=== PATIENT | female | born 1960 | race Caucasian/White ===

== ENCOUNTER 2020-06-20 15:19 | Inpatient (IN) | payer OTHER ==
--- OUTSIDE RECORDS SUMMARY | 2020-06-20 15:49 | XMS ---
:1960 Author Organization [facility] Support Name Relationship Address Phone UE Unavailable Unavailable Unavailable CARMEL PERDOMO DAUGHTER [address] [facility] [place] [address] Re-disclosure Warning The records that you are about to access may contain information from federally- assisted alcohol or drug abuse programs. If such information is present, then the following federally mandated warning applies: This information has been disclosed to you from records protected by federal confidentiality rules (42 CFR part 2). The federal rules prohibit you from making any further disclosure of this information unless further disclosure is expressly permitted by the written consent of the person to whom it pertains or as otherwise permitted by 42 CFR part 2. A general authorization for the release of medical or other information is NOT sufficient for this purpose. The Federal rules restrict any use of the information to criminally investigate or prosecute any alcohol or drug abuse patient.The records that you are about to access may contain highly sensitive health information, the redisclosure of which is protected by Article 27-F of the [facility] Public Health law. If you continue you may haveaccess to information: Regarding HIV / AIDS; Provided by facilities licensed or operated by the [facility] Office of Mental Health; or Provided by the [facility] Office for People With Developmental Disabilities. If such information is present, then the following [facility] mandated warning applies: This information has been disclosed to you from confidential records which are protected by state law. State law prohibits you from making any further disclosure of this information without the specific written consent of the person to whom it pertains, or as otherwise permitted by law. Any unauthorized further disclosure in violation of state law may result in a fine or alf sentence or both. A general authorization for the release of medical or other information is NOT sufficient authorization for further disclosure. Insurance Providers Payer name Policy type Policy ID Covered Covered democrat's Policy P nora / Coverage democrat ID relationship to Mims Inf ormation type mims HARMEET [id number] HEALTH NON CAP Results ID Date Data Source [id number] 03/12/2020 01:50:00 PM EDT [facility] Name Value Range Interpretation Code Description Data Kerrie rce(s) Supporting Document(s ) [facility] was ordered by [facility] and reported by [employer]. ID Date Data Source [id number] 11/30/2019 05:36:00 PM EDT [facility] Name Value Range Interpretation Code Description Data Kerrie rce(s) Supporting Document(s ) COV2 [facility] This lab was ordered by [facility]de nd reported by [facility] [place]. Procedure
[2020-06-20] MEDS ORDERED: KETOROLAC TROMETHAMINE 30 MG/1 ML VIAL IVPUSH ONE (16:11)
--- NOTE | 2020-06-20 16:15 | PDOC ---
History of Present Illness - General Chief Complaint: Pain Stated Complaint: LT LEG PAIN (THIGH) Time Seen by Provider: 06/20/20 16:07 History Source: Patient - History of Present Illness Timing/Duration: reports: other Quality: reports: moderate Past History - Medical History Allergies/Adverse Reactions: Allergies Allergy/AdvReac Type Severity Reaction Status Date / Time No Known Allergies Allergy Verified 06/20/20 15:38 - Psycho-Social/Smoking History Smoking History: Never smoked Review of Systems - Review of Systems Constitutional: Yes: Chills, Fever ABD/GI: No: Blood Streaked Bowels, Constipated, Diarrhea, Nausea, Vomiting, Tarry Stools : No: Dysuria, Discharge, Flank Pain, Hematuria *Physical Exam - Vital Signs Last Vital Signs Temp Pulse Resp BP Pulse Ox 97.9 F 94 H 18 109/62 98 06/20/20 15:38 06/20/20 15:38 06/20/20 15:38 06/20/20 15:38 06/20/20 15:38 - Physical Exam General Appearance: Yes: Appropriately Dressed. No: Apparent Distress HEENT: positive: Normal Voice Neck: positive: Supple Respiratory/Chest: negative: Respiratory Distress Gastrointestinal/Abdominal: positive: Normal Bowel Sounds, Tender, Soft. negative: Distended, Guarding, Rebound Musculoskeletal: negative: CVA Tenderness Integumentary: positive: Dry, Warm Neurologic: positive: Fully Oriented, Alert, Normal Mood/Affect ED Treatment Course - LABORATORY CBC & Chemistry Diagram: 06/21/20 07:14 06/21/20 07:14 - RADIOLOGY Radiology Studies Ordered: Category Date Time Status ABDOMEN & PELVIS CT WITH CONTR [CT] Stat CT Scan 06/20/20 16:10 Ordered Medical Decision Making - Medical Decision Making 06/20/20 16:11 60-year-old female, denies any past medical history, here with severe LLQ/pelvic pain with low-grade fever x5 days. Has been taking Motrin for her symptoms. States sxs better today. No dysuria, vaginal discharge, hematuria, nausea, vomiting or change in bowel movements. No history of similar episode. see exam Diverticulitis vs uti/pyelo, unlikely renal colic or appy Stable and in NAD w/ poorly localized ttp to L lower abd -pain control -labs -CT 06/20/20 16:15 06/20/20 19:48 WBC 19 w/ UTI. Repeat temp 102.5. Will get blood culture and lactic acid at this time. Dose of ceftriaxone and Ofirmev in progress. Will arrange admission pending CT read 06/20/20 20:35 Pt signed out to Dr Chiu pending CT read and admission Discharge - Discharge Information Problems reviewed: Yes Clinical Impression/Diagnosis: Pyelonephritis Condition: Fair - Admission Yes - Follow up/Referral - Patient Discharge Instructions - Post Discharge Activity
[2020-06-20] MEDS ORDERED: KETOROLAC TROMETHAMINE 30 MG/1 ML VIAL ONE (16:31)
[2020-06-20 18:16] LABS: BASO % 0.3 % (0-2.0); EOS % 0.4 % (0-4.5); HEMATOCRIT 37.4 % (32.4-45.2); HEMOGLOBIN 12.6 GM/dL (10.7-15.3); LYMPH % 7.3 % (8-40); MCH 32.2 pg (25.7-33.7); MCHC 33.6 g/dl (32.0-36.0); MEAN CELL VOLUME 95.8 fl (80-96); MEAN PLT VOLUME 8.6 fl (7.5-11.1); MONO % 10.1 % (3.8-10.2); NEUT % 81.9 % (42.8-82.8); PLATELET COUNT 263 K/MM3 (134-434); RDW 13.1 % (11.6-15.6); WHITE BLOOD COUNT 19.3 K/mm3 (4.0-10.0)
[2020-06-20 18:28] LABS: EPI CELLS 2 /uL (0-25.1); HYALINE CASTS 7 /uL (0-3.1); PH,URINE 5.5 (5.0-8.0); URINE APPEARANCE CLOUDY; URINE BACTERIA >9,000 /uL (0-1359); URINE BILIRUBIN NEGATIVE (NEGATIVE); URINE COLOR YELLOW; URINE GLUCOSE (UA) NEGATIVE (NEGATIVE); URINE KETONE NEGATIVE (NEGATIVE); URINE LEUK ESTERASE 2+ (NEGATIVE); URINE NITRITE POSITIVE (NEGATIVE); URINE PROTEIN TRACE (NEGATIVE); URINE RBC 13 /uL (0-23.9); URINE WBC 190 /uL (0-25.8)
[2020-06-20 18:29] LABS: HCG,QUALITATIVE URINE Negative
[2020-06-20 18:53] LABS: ALBUMIN 3.5 g/dl (3.4-5.0); BILIRUBIN,TOTAL 0.5 mg/dL (0.2-1); BLOOD UREA NITROGEN 18.6 mg/dL (7-18); CALCIUM 8.9 mg/dL (8.5-10.1); CREATININE 1.1 mg/dL (0.55-1.3); POTASSIUM 3.7 mmol/L (3.5-5.1); TOT PROT 8.1 g/dl (6.4-8.2)
[2020-06-20] MEDS ORDERED: CEFTRIAXONE 1 GM in DEXTROSE 5%-WATER - 100 ML IVPB ONE (19:39)
[2020-06-20] MEDS ORDERED: CEFTRIAXONE 1 GM/50 ML BAG ONE (19:43)
[2020-06-20] MEDS ORDERED: ACETAMINOPHEN 1000 MG/100 ML VIAL (NON FORMULARY) IVPB ONE (19:47)
[2020-06-20] MEDS ORDERED: SODIUM CHLORIDE 1,000 ML IV STA ×2 (19:47→22:46)
[2020-06-20] MEDS ORDERED: ACETAMINOPHEN INJECTION 100 ML IVPB ONE (19:48)
--- NOTE | 2020-06-20 21:06 | PN ---
Teaching Attending Note Name of Resident: Ben Lawrence ATTENDING PHYSICIAN STATEMENT I saw and evaluated the patient. I reviewed the resident's note and discussed the case with the resident. I agree with the resident's findings and plan as documented. SUBJECTIVE: Patient is a 60-year-old woman with a PMH of HTN (on Lisinopril) who presents to the ER with severe LLQ/pelvic pain and low-grade fever for 5 days. Has been taking Motrin for her symptoms and felt better today. Denies dysuria, abnormal vaginal discharge, hematuria, nausea, vomiting or change in bowel movements. No history of similar episode. Patient denies chest pain, shortness of breath, headache, palpitations, dizziness, fever, chills, nausea, vomiting, diarrhea, constipation, frequency, urgency, melena or hematochezia. Denies alcohol, tobacco or illicit drug use. No sick contacts or recent travels. Family history of DM and HTN on both sides of the family. OBJECTIVE: Alert Vital Signs Period Temp Pulse Resp BP Sys/Grant Pulse Ox Last 24 Hr 97.9 F-102.7 F 92-94 18-19 109-115/62-65 98-100 HEENT: No Jaundice, eye redness or discharge, PERRLA, EOMI. Normocephalic, atraumatic. External ears are normal and hearing is grossly intact. No nasal discharge. Neck: Supple, nontender. No palpable adenopathy or thyromegaly. No JVD Chest: Good effort. Clear to auscultation and percussion. Heart: Regular. No S3, rub or murmur Abdomen: Not distended, soft, lower abdominal tenderness and no HSM. No rebound or guarding. Normal bowel sounds. Ext: Peripheral pulses intact. No leg edema. Skin: Warm and dry. No petechiae, rash or ecchymosis. Neuro: Alert. Oriented x3. CN 2-12 grossly intact. Sensation grossly intact in all four extremities and DTR are symmetric. Psych: Appropriate mood and affect. Good insight. Home Medications Medication Instructions Recorded NK [No Known Home Medication] 06/20/20 Abnormal Lab Results 06/20/20 06/20/20 06/20/20 16:40 16:40 16:40 WBC 19.3 H Absolute Neuts (auto) 15.8 H Lymphocytes % 7.3 L Anion Gap 7 L BUN 18.6 H Urine Nitrite Positive H Ur Leukocyte Esterase 2+ H Current Medications Generic Name Dose Route Start Last Admin Trade Name Freq PRN Reason Stop Dose Admin Acetaminophen 650 mg 06/20/20 22:29 Tylenol - PO Q6H PRN Fever Or Pain 1-5 Enoxaparin Sodium 40 mg 06/21/20 10:00 Lovenox - SQ DAILY JENELLE Sodium Chloride 1,000 mls @ 83 mls/hr 06/20/20 22:30 Normal Saline - IV ASDIR JENELLE Ceftriaxone Sodium 1 gm/ 50 mls @ 100 mls/hr 06/21/20 10:00 Dextrose IVPB DAILY PENDING SALE TO [facility] Protocol ASSESSMENT AND PLAN: 1. Pyelonephritis - CT scan of abdomen/pelvis shows left perinephric stranding. Being treated with IV Ceftriaxone and IV NS. EKG is pending. Consult ID. 2. DVT prophylaxis - Lovenox 40 mg SQ q 24 hours. 3. Advance directives - Full code
--- OUTSIDE RECORDS SUMMARY | 2020-06-20 22:17 | XMS ---
:1960 Author Organization [facility] Support Name Relationship Address Phone UE, UNEMPLOYED Unavailable Unavailable Unavailable UE Unavailable Unavailable Unavailable CARMEL PERDOMO DAUGHTER [address] [facility] [place] [id number] Re-disclosure Warning The records that you are [...] is protected by Article 27-F of the [facility] Public Health law. If you continue you may haveaccess to information: Regarding HIV / AIDS; Provided by facilities licensed or operated by the [facility] Office of Mental Health; or Provided by the [facility] Office for People With Developmental Disabilities. If such information is present, then the following [facility] mandated warning applies: This information has been [...] law may result in a fine or shelter sentence or both. A general authorization for the release of medical or other information is NOT sufficient authorization for further disclosure. Insurance Providers Payer name Policy type Policy ID Covered Covered constitution party's Policy P nora / Coverage constitution party ID relationship to Mims Inf ormation type mims HARMEET [id number] 900 HEALTH NON CAP Results ID Date Data Source [id number] 03/12/2020 01:50:00 PM EDT [facility] Name Value Range Interpretation Code Description Data Kerrie rce(s) Supporting Document(s ) SARS[facility]COV-2 [facility] This lab was ordered by [facility] and reported by [id number]. ID Date Data Source [id number] 11/30/2019 05:36:00 PM EDT [facility] Name Value Range Interpretation Code Description Data Kerrie rce(s) Supporting Document(s ) COV2 [facility] This lab was ordered by [facility] hyde nd reported by [facility]. Procedure
--- NOTE | 2020-06-20 22:28 | HP ---
CHIEF COMPLAINT: LLQ pelvic pain, low grade fever PCP: Dr. Crowley HISTORY OF PRESENT ILLNESS: Pt is a 60 yo F with PMHx of HTN presenting to the ED with 5 days of LLQ abdominal/pelvic pain with no radiation, fevers with Tmax of 100.5 at home. Pt states she has been having dysuria, malodorous urine and dark yellow urine during this time as well with on/off fevers that break with Tylenol use. Pt states this has not happened to her before. Pt also had one episode of NBNB vomiting in the ED prior to evaluation. Pt states she has not seen any doctors for this since this has began, and began to improve slightly until her temperatures started spiking earlier today which prompted her to present to the ED. Pt admits to fever, chills, nausea/vomiting, dysuria Pt denies hematuria, diarrhea/constipation, CP, SOB, palpitations, frequency, urgency. ER course was notable for: (1) Ab/pelvis CT showing L perinephric standing (2) Tylenol for fever 102.7 (3) Rocephin x1, NS1L Recent Travel: denies PAST MEDICAL HISTORY: HTN PAST SURGICAL HISTORY: denies Social History: Smoking: denies Alcohol: denies Drugs: denies Allergies No Known Allergies Allergy (Verified 06/20/20 15:38) HOME MEDICATIONS: Home Medications Medication Instructions Recorded NK [No Known Home Medication] 06/20/20 REVIEW OF SYSTEMS CONSTITUTIONAL: Absent: fever, chills, diaphoresis, generalized weakness, malaise, loss of appetite, weight change HEENT: Absent: rhinorrhea, nasal congestion, throat pain, throat swelling, difficulty swallowing, mouth swelling, ear pain, eye pain, visual changes CARDIOVASCULAR: Absent: chest pain, syncope, palpitations, irregular heart rate, lightheadedness, peripheral edema RESPIRATORY: Absent: cough, shortness of breath, dyspnea with exertion, orthopnea, wheezing, stridor, hemoptysis GASTROINTESTINAL: Absent: abdominal pain, abdominal distension, nausea, vomiting, diarrhea, constipation, melena, hematochezia GENITOURINARY: Absent: dysuria, frequency, urgency, hesitancy, hematuria, flank pain, genital pain MUSCULOSKELETAL: Absent: myalgia, arthralgia, joint swelling, back pain, neck pain SKIN: Absent: rash, itching, pallor HEMATOLOGIC/IMMUNOLOGIC: Absent: easy bleeding, easy bruising, lymphadenopathy, frequent infections ENDOCRINE: Absent: unexplained weight gain, unexplained weight loss, heat intolerance, cold intolerance NEUROLOGIC: Absent: headache, focal weakness or paresthesias, dizziness, unsteady gait, seizure, mental status changes, bladder or bowel incontinence PSYCHIATRIC: Absent: anxiety, depression, suicidal or homicidal ideation, hallucinations. PHYSICAL EXAMINATION Vital Signs - 24 hr 06/20/20 06/20/20 15:38 20:14 Temperature 97.9 F 102.7 F H Pulse Rate 94 H Pulse Rate [ 92 H Apical] Respiratory 18 19 Rate Blood Pressure 109/62 Blood Pressure 115/65 [Right Arm] O2 Sat by Pulse 98 100 Oximetry (%) GENERAL: Awake, alert, and fully oriented, in no acute distress. HEAD: Normal with no signs of trauma. EYES: Pupils equal, round and reactive to light, extraocular movements intact, sclera anicteric, conjunctiva clear. No lid lag. EARS, NOSE, THROAT: Ears normal, nares patent, oropharynx clear without exudates. Moist mucous membranes. NECK: Normal range of motion, supple without lymphadenopathy, JVD, or masses. LUNGS: Breath sounds equal, clear to auscultation bilaterally. No wheezes, and no crackles. No accessory muscle use. HEART: Regular rate and rhythm, normal S1 and S2 without murmur, rub or gallop. ABDOMEN: Soft, nontender, not distended, normoactive bowel sounds, no guarding, no rebound, no masses. No hepatomegaly or splenomegaly. MUSCULOSKELETAL: Normal range of motion at all joints. No bony deformities or tenderness. No CVA tenderness. UPPER EXTREMITIES: 2+ pulses, warm, well-perfused. No cyanosis. No clubbing. No peripheral edema. LOWER EXTREMITIES: 2+ pulses, warm, well-perfused. No calf tenderness. No peripheral edema. NEUROLOGICAL: Cranial nerves II-XII intact. Normal speech. Normal gait. PSYCHIATRIC: Cooperative. Good eye contact. Appropriate mood and affect. SKIN: Warm, dry, normal turgor, no rashes or lesions noted, normal capillary refill. Laboratory Results - last 24 hr 06/20/20 06/20/20 06/20/20 16:40 16:40 16:40 WBC 19.3 H RBC 3.90 Hgb 12.6 Hct 37.4 MCV 95.8 MCH 32.2 MCHC 33.6 RDW 13.1 Plt Count 263 MPV 8.6 Absolute Neuts (auto) 15.8 H Neutrophils % 81.9 Lymphocytes % 7.3 L Monocytes % 10.1 Eosinophils % 0.4 Basophils % 0.3 Nucleated RBC % 0 Sodium 137 Potassium 3.7 Chloride 100 Carbon Dioxide 30 Anion Gap 7 L BUN 18.6 H Creatinine 1.1 Est GFR (CKD-EPI)AfAm 64.09 Est GFR (CKD-EPI)NonAf 55.30 Random Glucose 92 Lactic Acid Calcium 8.9 Total Bilirubin 0.5 AST 24 ALT 19 Alkaline Phosphatase 95 Total Protein 8.1 Albumin 3.5 Lipase 103 Urine Color Yellow Urine Appearance Cloudy Urine pH 5.5 Ur Specific [place] 1.019 Urine Protein Trace Urine Glucose (UA) Negative Urine Ketones Negative Urine Blood Negative Urine Nitrite Positive H Urine Bilirubin Negative Urine Urobilinogen 1.0 Ur Leukocyte Esterase 2+ H Urine WBC (Auto) 190 Urine RBC (Auto) 13 Urine Casts (Auto) 7 U Epithel Cells (Auto) 2 Urine Bacteria (Auto) >9,000 Urine HCG, Qual Negative 06/20/20 20:40 WBC RBC Hgb Hct MCV MCH MCHC RDW Plt Count MPV Absolute Neuts (auto) Neutrophils % Lymphocytes % Monocytes % Eosinophils % Basophils % Nucleated RBC % Sodium Potassium Chloride Carbon Dioxide Anion Gap BUN Creatinine Est GFR (CKD-EPI)AfAm Est GFR (CKD-EPI)NonAf Random Glucose Lactic Acid 2.2 H* Calcium Total Bilirubin AST ALT Alkaline Phosphatase Total Protein Albumin Lipase Urine Color Urine Appearance Urine pH Ur Specific [place] Urine Protein Urine Glucose (UA) Urine Ketones Urine Blood Urine Nitrite Urine Bilirubin Urine Urobilinogen Ur Leukocyte Esterase Urine WBC (Auto) Urine RBC (Auto) Urine Casts (Auto) U Epithel Cells (Auto) Urine Bacteria (Auto) Urine HCG, Qual ASSESSMENT/PLAN: Pt is a 60 yo F with PMHx of HTN presenting to the ED with 5 days of LLQ pelvic pain and low grade fevers admitted for pyelonephritis. #Pyelonephritis -Rec'd Rocephin and NS 1L bolus in ED x1 -continue IV rocephin 1g daily -abd/pelv CT prelim read showing L perinephric stranding in lower pole -n/v, fever/chills -Tmax in ED of 102.7; tylenol PRN for fevers/pain -NS 83cc/hr #Hx of HTN -states she is on home lisinopril, will need to med rec -hold HTN under BP improves, currently 115/65 -NS 83cc/hr FEN NS 83cc/hr Monitor electrolytes Sodium controlled diet PPx Lovenox 40mg SQ Dispo Admit to med surg. IV rocephin for pyelo. Tylenol PRN. ATTENDING PHYSICIAN STATEMENT I saw and evaluated the patient. I reviewed the resident's note and discussed the case with the resident. I agree with the resident's findings and plan as documented. SUBJECTIVE: OBJECTIVE: ASSESSMENT AND PLAN:
[2020-06-20] MEDS ORDERED: SODIUM CHLORIDE 1,000 ML IV SCH (22:30)
[2020-06-21 00:10] VITALS: BMI 28.5
[2020-06-21] MEDS: ACETAMINOPHEN 325 MG TABLET (FP) PO PRN ×3 (03:46→13:22)
[2020-06-21 08:13] LABS: BASO % 0.1 % (0-2.0); EOS % 0.1 % (0-4.5); HEMATOCRIT 30.4 % (32.4-45.2); HEMOGLOBIN 10.3 GM/dL (10.7-15.3); LYMPH % 4.8 % (8-40); MCH 31.6 pg (25.7-33.7); MCHC 33.7 g/dl (32.0-36.0); MEAN CELL VOLUME 93.7 fl (80-96); MEAN PLT VOLUME 8.3 fl (7.5-11.1); PLATELET COUNT 233 K/MM3 (134-434); RBC 3.25 M/mm3 (3.60-5.2)
[2020-06-21 08:33] LABS: ALBUMIN 2.7 g/dl (3.4-5.0); CALCIUM 8.1 mg/dL (8.5-10.1); CREATININE 0.6 mg/dL (0.55-1.3); MAGNESIUM 2.1 mg/dL (1.8-2.4); POTASSIUM 3.5 mmol/L (3.5-5.1); TOT PROT 6.2 g/dl (6.4-8.2)
[2020-06-21] MEDS ORDERED: CEFTRIAXONE 1 GM in DEXTROSE 5%-WATER - 50 ML IVPB SCH (10:00)
[2020-06-21] MEDS ORDERED: NAPH,MB-DB/K PH,MBDB POWDER PACKET PO ONE (10:00)
[2020-06-21] MEDS ORDERED: cefTRIAXone SODIUM 1 GM VIAL ONE (10:46)
[2020-06-21] MEDS ORDERED: DEXTROSE 5%-WATER - 50 ML IVPB ONE (10:47)
[2020-06-21] MEDS: ENOXAPARIN NA (PORCINE) 40 MG/0.4 ML DISP.SYRIN SQ SCH (10:49)
[2020-06-21] MEDS: SODIUM CHLORIDE 1,000 ML IV SCH (10:50)
[2020-06-21] MEDS ORDERED: CEFTRIAXONE 1 GM in DEXTROSE 5%-WATER - 50 ML IVPB ONE (11:00)
--- NOTE | 2020-06-21 11:21 | PN ---
Physical Exam: SUBJECTIVE: Patient seen and examined. Tmax overnight 102.2 continuing to improve to 99 today. Pt c/o chills but no sign of fever, will switch tylenol to IV and assess improvement. OBJECTIVE: Vital Signs Period Temp Pulse Resp BP Sys/Grant Pulse Ox Last 24 Hr 97.9 F-102.7 F 81-94 18-20 94-135/49-68 94-100 GENERAL: The patient is awake, alert, and fully oriented, in no acute distress. LUNGS: Breath sounds equal, clear to auscultation bilaterally, no wheezes, no crackles, no accessory muscle use. HEART: Regular rate and rhythm, S1, S2 without murmur, rub or gallop. ABDOMEN: Soft, nontender, nondistended, no CVA tenderness or suprapubic tenderness noted EXTREMITIES: 2+ pulses, warm, well-perfused, no edema. NEUROLOGICAL: Cranial nerves II through XII grossly intact. Normal speech, gait not observed. PSYCH: Normal mood, normal affect. SKIN: Warm, dry, normal turgor, no rashes or lesions noted Laboratory Results - last 24 hr 06/20/20 06/20/20 06/20/20 16:40 16:40 16:40 WBC 19.3 H RBC 3.90 Hgb 12.6 Hct 37.4 MCV 95.8 MCH 32.2 MCHC 33.6 RDW 13.1 Plt Count 263 MPV 8.6 Absolute Neuts (auto) 15.8 H Neutrophils % 81.9 Lymphocytes % 7.3 L Monocytes % 10.1 Eosinophils % 0.4 Basophils % 0.3 Nucleated RBC % 0 Sodium 137 Potassium 3.7 Chloride 100 Carbon Dioxide 30 Anion Gap 7 L BUN 18.6 H Creatinine 1.1 Est GFR (CKD-EPI)AfAm 64.09 Est GFR (CKD-EPI)NonAf 55.30 Random Glucose 92 Lactic Acid Calcium 8.9 Phosphorus Magnesium Total Bilirubin 0.5 AST 24 ALT 19 Alkaline Phosphatase 95 Total Protein 8.1 Albumin 3.5 Lipase 103 Urine Color Yellow Urine Appearance Cloudy Urine pH 5.5 Ur Specific [place] 1.019 Urine Protein Trace Urine Glucose (UA) Negative Urine Ketones Negative Urine Blood Negative Urine Nitrite Positive H Urine Bilirubin Negative Urine Urobilinogen 1.0 Ur Leukocyte Esterase 2+ H Urine WBC (Auto) 190 Urine RBC (Auto) 13 Urine Casts (Auto) 7 U Epithel Cells (Auto) 2 Urine Bacteria (Auto) >9,000 Urine HCG, Qual Negative 06/20/20 06/21/20 06/21/20 20:40 07:14 07:14 WBC 19.0 H RBC 3.25 L Hgb 10.3 L Hct 30.4 L D MCV 93.7 MCH 31.6 MCHC 33.7 RDW 13.0 Plt Count 233 MPV 8.3 Absolute Neuts (auto) 15.9 H Neutrophils % 84.0 H Lymphocytes % 4.8 L D Monocytes % 11.0 H Eosinophils % 0.1 Basophils % 0.1 Nucleated RBC % 0 Sodium 138 Potassium 3.5 Chloride 106 Carbon Dioxide 23 Anion Gap 9 BUN 13.0 Creatinine 0.6 Est GFR (CKD-EPI)AfAm 116.45 Est GFR (CKD-EPI)NonAf 100.47 Random Glucose 93 Lactic Acid 2.2 H* Calcium 8.1 L Phosphorus 2.0 L Magnesium 2.1 Total Bilirubin 1.0 AST 16 ALT 15 Alkaline Phosphatase 77 Total Protein 6.2 L Albumin 2.7 L Lipase Urine Color Urine Appearance Urine pH Ur Specific [place] Urine Protein Urine Glucose (UA) Urine Ketones Urine Blood Urine Nitrite Urine Bilirubin Urine Urobilinogen Ur Leukocyte Esterase Urine WBC (Auto) Urine RBC (Auto) Urine Casts (Auto) U Epithel Cells (Auto) Urine Bacteria (Auto) Urine HCG, Qual Active Medications Generic Name Dose Route Start Last Admin Trade Name Freq PRN Reason Stop Dose Admin Acetaminophen 650 mg 06/20/20 22:29 06/21/20 06:43 Tylenol - PO 650 mg Q6H PRN Administration Fever Or Pain 1-5 Enoxaparin Sodium 40 mg 06/21/20 10:00 06/21/20 10:49 Lovenox - SQ 40 mg DAILY JENELLE Administration Ceftriaxone Sodium 1 gm/ 50 mls @ 100 mls/hr 06/21/20 11:00 06/21/20 10:49 Dextrose IVPB 06/21/20 11:29 100 mls/hr ONCE ONE Administration Protocol Ceftriaxone Sodium 2 gm/ 100 mls @ 200 mls/hr 06/22/20 10:00 Dextrose IVPB DAILY JENELLE Protocol Sodium Chloride 1,000 mls @ 150 mls/hr 06/21/20 10:32 06/21/20 10:50 Normal Saline - IV 150 mls/hr ASDIR JENELLE Administration Metronidazole 500 mg in 100 mls @ 100 mls/hr 06/21/20 10:45 06/21/20 10:49 Flagyl 500mg Premixed Ivpb - IVPB 100 mls/hr Q8H-IV JENELLE Administration Influenza Virus Vaccine 60 mcg 06/21/20 06:58 Flulaval Quad [id number] Syr IM 06/21/20 06:59 .ONCE ONE ASSESSMENT/PLAN: Pt is a 60 yo F with PMHx of HTN presenting to the ED with 5 days of LLQ pelvic pain and low grade fevers admitted for pyelonephritis. #Acute complicated cystitis/Pyelonephritis -started on 2g Rocephin and flagyl 500 q8 with IV NS -abd/pelv CT prelim showing L perinephric fat stranding in lower pole -n/v, fever/chills -Tmax in ED of 102.7; tylenol PRN for fevers/pain -NS 150/hr - ID consulted as pt temp dropping but still c/o shivers/?rigors - wbc > 19 continue to trend daily #Hx of HTN -states she is on home lisinopril, will need to med rec -hold HTN under BP improves, currently 115/65 FEN NS 150cc/hr Monitor electrolytes Sodium controlled diet PPx Lovenox 40mg SQ Dispo Admit to med surg. IV rocephin for pyelo. Tylenol PRN. Visit type - Emergency Visit Emergency Visit: Yes ED Registration Date: 06/20/20 Care time: The patient presented to the Emergency Department on the above date and was hospitalized for further evaluation of their emergent condition. - New Patient This patient is new to me today: Yes Date on this admission: 06/28/20 - Critical Care Critical Care patient: No - Discharge Referral Referred to [facility] No ATTENDING PHYSICIAN STATEMENT I saw and evaluated the patient. I reviewed the resident's note and discussed the case with the resident. I agree with the resident's findings and plan as documented. SUBJECTIVE: OBJECTIVE: ASSESSMENT AND PLAN:
--- NOTE | 2020-06-21 13:45 | PN ---
Progress Note (short form) - Note Progress Note: ID CONSULT DICTATED PROBABLE L PYELONEPHRITIS R/O SEPSIS SECONDARY TO SOURCE LACTIC ACIDOSIS AWAIT C/S CONTINUE CEFTRIAXONE
[2020-06-21] MEDS ORDERED: ACETAMINOPHEN 1000 MG/100 ML VIAL (NON FORMULARY) IVPB PRN (13:56)
--- NOTE | 2020-06-21 13:57 | CONS ---
INFECTIOUS DISEASE CONSULTATION DATE OF CONSULTATION: DATE OF DICTATION: 06/21/2020 HISTORY: A 60-year-old previously healthy female evaluated for pyelonephritis. She presented to the hospital on June 20, 2020, with complaints of left-sided abdominal pain radiating to the left thigh. She had complained of left lower quadrant abdominal and pelvic pain. She was noted to have fever. Patient states she had symptoms present for approximately 5 days prior to admission. She denied any dysuria or hematuria. She was seen in evaluation in the emergency room where a CAT scan of the abdomen and pelvis was performed. She was noted to have some stranding around the left kidney. Her course was complicated by nonbilious nonbloody vomiting. She denies any dysuria or hematuria. No complaints of malodorous urine. She denies prior history of urinary tract infection. Her course has been complicated by fever at 102.7 and a white blood cell count of 19,000. PAST MEDICAL HISTORY: Positive for hypertension. ALLERGIES: No known allergies. LABORATORY DATA: White count 19.0, hematocrit 30.4, platelets 233. Creatinine 0.6, lactic acid 2.2. Culture is pending. Urine analysis 190 white cells. PHYSICAL EXAMINATION: General: She is in moderate distress secondary to left-sided abdominal pain. She is noted to have some chills. Vital Signs: Temperature 99.1, blood pressure 96/57, pulse 86 regular, respirations 18 per minute. HEENT: Sclerae are anicteric. Heart: Sounds S1, S2. Lungs: Clear. Abdomen: Soft. There is left-sided flank and lower quadrant tenderness to palpation. Extremities: Negative for edema. IMPRESSION: 1. Probable acute left pyelonephritis. 2. Rule out sepsis secondary to genitourinary source. 3. Fever, leukocytosis. 4. Lactic acidosis. Await cultures. Empiric antibiotic coverage with ceftriaxone. IV fluid hydration. Thank you for the kind referral. MASON GARCIA M.D. JANETH/[id number]
--- NOTE | 2020-06-21 15:13 | PN ---
Teaching Attending Note Name of Resident: Gio Wray ATTENDING PHYSICIAN STATEMENT I saw and evaluated the patient. I reviewed the resident's note and discussed the case with the resident. I agree with the resident's findings and plan as documented. SUBJECTIVE: Patient is having chills , having a generalized weakness. low grade fever. OBJECTIVE: Vital Signs Temperature 99.9 F H 06/21/20 14:00 Pulse Rate 93 H 06/21/20 14:00 Respiratory Rate 18 06/21/20 14:00 Blood Pressure 117/59 L 06/21/20 14:00 O2 Sat by Pulse Oximetry (%) 97 06/21/20 14:00 PE: per resident's note No CVA tenderness CBCD WBC 19.0 K/mm3 (4.0-10.0) H 06/21/20 07:14 RBC 3.25 M/mm3 (3.60-5.2) L 06/21/20 07:14 Hgb 10.3 GM/dL (10.7-15.3) L 06/21/20 07:14 Hct 30.4 % (32.4-45.2) L D 06/21/20 07:14 MCV 93.7 fl (80-96) 06/21/20 07:14 MCHC 33.7 g/dl (32.0-36.0) 06/21/20 07:14 RDW 13.0 % (11.6-15.6) 06/21/20 07:14 Plt Count 233 K/MM3 (134-434) 06/21/20 07:14 MPV 8.3 fl (7.5-11.1) 06/21/20 07:14 CMP Sodium 138 mmol/L (136-145) 06/21/20 07:14 Potassium 3.5 mmol/L (3.5-5.1) 06/21/20 07:14 Chloride 106 mmol/L (98-107) 06/21/20 07:14 Carbon Dioxide 23 mmol/L (21-32) 06/21/20 07:14 Anion Gap 9 MMOL/L (8-16) 06/21/20 07:14 BUN 13.0 mg/dL (7-18) 06/21/20 07:14 Creatinine 0.6 mg/dL (0.55-1.3) 06/21/20 07:14 Random Glucose 93 mg/dL (74-106) 06/21/20 07:14 Calcium 8.1 mg/dL (8.5-10.1) L 06/21/20 07:14 Total Bilirubin 1.0 mg/dL (0.2-1) 06/21/20 07:14 AST 16 U/L (15-37) 06/21/20 07:14 ALT 15 U/L (13-61) 06/21/20 07:14 Alkaline Phosphatase 77 U/L (45-117) 06/21/20 07:14 Total Protein 6.2 g/dl (6.4-8.2) L 06/21/20 07:14 Albumin 2.7 g/dl (3.4-5.0) L 06/21/20 07:14 Current Medications Generic Name Dose Route Start Last Admin Trade Name Freq PRN Reason Stop Dose Admin Acetaminophen 1,000 mg 06/21/20 13:56 Ofirmev Injection - IVPB 06/22/20 13:56 Q8H PRN SHIVERING Enoxaparin Sodium 40 mg 06/21/20 10:00 06/21/20 10:49 Lovenox - SQ 40 mg DAILY JENELLE Administration Ceftriaxone Sodium 2 gm/ 100 mls @ 200 mls/hr 06/22/20 10:00 Dextrose IVPB DAILY JENELLE Protocol Sodium Chloride 1,000 mls @ 150 mls/hr 06/21/20 10:32 06/21/20 10:50 Normal Saline - IV 150 mls/hr ASDIR JENELLE Administration Metronidazole 500 mg in 100 mls @ 100 mls/hr 06/21/20 10:45 06/21/20 10:49 Flagyl 500mg Premixed Ivpb - IVPB 100 mls/hr Q8H-IV JENELLE Administration Influenza Virus Vaccine 60 mcg 06/21/20 06:58 Flulaval Quad [id number] Syr IM 06/21/20 06:59 .ONCE ONE Urine Test Results Urine Color Yellow 06/20/20 16:40 Urine Appearance Cloudy 06/20/20 16:40 Urine pH 5.5 (5.0-8.0) 06/20/20 16:40 Ur Specific [place] 1.019 (1.010-1.035) 06/20/20 16:40 Urine Protein Trace (NEGATIVE) 06/20/20 16:40 Urine Glucose (UA) Negative (NEGATIVE) 06/20/20 16:40 Urine Ketones Negative (NEGATIVE) 06/20/20 16:40 Urine Blood Negative (NEGATIVE) 06/20/20 16:40 Urine Nitrite Positive (NEGATIVE) H 06/20/20 16:40 Urine Bilirubin Negative (NEGATIVE) 06/20/20 16:40 Ur Leukocyte Esterase 2+ (NEGATIVE) H 06/20/20 16:40 abd/pelv CT prelim showing L perinephric fat stranding in lower pole ASSESSMENT AND PLAN: This patient is a 60yof with PMHx of HTN presented to the ED c/o having 5 days of LLQ pelvic pain n and is admitted for acute pyelonephritis. #Acute Pyelonephritis on rocephin 2gm/flagyl iv 500mg q8, Id on the case dr Tinsley, continue daily cbc, ivf continue , ordered US f/u the result. #Sepsis due to pylo r/o infection, will continue to monitor #Hx of HTN : continue home meds DVt px: lovenox sq
--- NOTE | 2020-06-21 21:45 | EKG ---
Test Reason : Blood Pressure : / mmHG Vent. Rate : 082 BPM Atrial Rate : 082 BPM P-R Int : 178 ms QRS Dur : 090 ms QT Int : 342 ms P-R-T Axes : 061 029 009 degrees QTc Int : 399 ms NORMAL SINUS RHYTHM POSSIBLE LEFT ATRIAL ENLARGEMENT NONSPECIFIC T WAVE ABNORMALITY ABNORMAL ECG NO PREVIOUS ECGS AVAILABLE Confirmed by Eleonora Arora ([id number]) on 06/21/2020 9:45:30 PM Referred By: Confirmed By:Eleonora Arora
[2020-06-21] MEDS ORDERED: INSULIN (NOVOLOG) ASPART 100 UNITS/ML 10ML VIAL ONE (22:00)
[2020-06-22 06:22] LABS: BASO % 0.2 % (0-2.0); EOS % 0.2 % (0-4.5); HEMATOCRIT 28.3 % (32.4-45.2); HEMOGLOBIN 9.6 GM/dL (10.7-15.3); LYMPH % 10.9 % (8-40); MCH 31.8 pg (25.7-33.7); MCHC 33.9 g/dl (32.0-36.0); MEAN CELL VOLUME 93.8 fl (80-96); MEAN PLT VOLUME 8.1 fl (7.5-11.1); NEUT % 77.7 % (42.8-82.8); PLATELET COUNT 207 K/MM3 (134-434); RBC 3.02 M/mm3 (3.60-5.2); RDW 13.1 % (11.6-15.6); WHITE BLOOD COUNT 14.8 K/mm3 (4.0-10.0)
[2020-06-22 06:56] LABS: ALBUMIN 2.3 g/dl (3.4-5.0); BILIRUBIN,TOTAL 0.2 mg/dL (0.2-1); BLOOD UREA NITROGEN 11.6 mg/dL (7-18); CALCIUM 7.7 mg/dL (8.5-10.1); CREATININE 0.5 mg/dL (0.55-1.3); POTASSIUM 3.4 mmol/L (3.5-5.1); TOT PROT 5.6 g/dl (6.4-8.2)
--- NOTE | 2020-06-22 09:40 | PN ---
Teaching Attending Note Name of Resident: Lolis Argueta ATTENDING PHYSICIAN STATEMENT I saw and evaluated the patient. I reviewed the resident's note and discussed the case with the resident. I agree with the resident's findings and plan as documented. SUBJECTIVE: Patient is feeling better in terms of back pain, no fever or shortness of breath OBJECTIVE: Vital Signs Temperature 98.8 F 06/22/20 06:00 Pulse Rate 68 06/22/20 06:00 Respiratory Rate 20 06/22/20 06:00 Blood Pressure 119/65 06/22/20 06:00 O2 Sat by Pulse Oximetry (%) 98 06/22/20 06:00 PE: per resident's note left CVA tenderness CBCD WBC 14.8 K/mm3 (4.0-10.0) H 06/22/20 06:00 RBC 3.02 M/mm3 (3.60-5.2) L 06/22/20 06:00 Hgb 9.6 GM/dL (10.7-15.3) L 06/22/20 06:00 Hct 28.3 % (32.4-45.2) L 06/22/20 06:00 MCV 93.8 fl (80-96) 06/22/20 06:00 MCHC 33.9 g/dl (32.0-36.0) 06/22/20 06:00 RDW 13.1 % (11.6-15.6) 06/22/20 06:00 Plt Count 207 K/MM3 (134-434) 06/22/20 06:00 MPV 8.1 fl (7.5-11.1) 06/22/20 06:00 CMP Sodium 142 mmol/L (136-145) 06/22/20 06:00 Potassium 3.4 mmol/L (3.5-5.1) L 06/22/20 06:00 Chloride 113 mmol/L (98-107) H 06/22/20 06:00 Carbon Dioxide 23 mmol/L (21-32) 06/22/20 06:00 Anion Gap 6 MMOL/L (8-16) L 06/22/20 06:00 BUN 11.6 mg/dL (7-18) 06/22/20 06:00 Creatinine 0.5 mg/dL (0.55-1.3) L 10/12/20 06:00 Random Glucose 96 mg/dL (74-106) 06/22/20 06:00 Calcium 7.7 mg/dL (8.5-10.1) L 06/22/20 06:00 Total Bilirubin 0.2 mg/dL (0.2-1) 06/22/20 06:00 AST 15 U/L (15-37) 06/22/20 06:00 ALT 13 U/L (13-61) 06/22/20 06:00 Alkaline Phosphatase 69 U/L (45-117) 06/22/20 06:00 Total Protein 5.6 g/dl (6.4-8.2) L 06/22/20 06:00 Albumin 2.3 g/dl (3.4-5.0) L 06/22/20 06:00 Current Medications Generic Name Dose Route Start Last Admin Trade Name Freq PRN Reason Stop Dose Admin Acetaminophen 1,000 mg 06/21/20 13:56 06/22/20 01:23 Ofirmev Injection - IVPB 06/22/20 13:56 1,000 mg Q8H PRN Administration SHIVERING Enoxaparin Sodium 40 mg 06/21/20 10:00 06/21/20 10:49 Lovenox - SQ 40 mg DAILY JENELLE Administration Ceftriaxone Sodium 2 gm/ 100 mls @ 200 mls/hr 06/22/20 10:00 Dextrose IVPB DAILY JENELLE Protocol Sodium Chloride 1,000 mls @ 150 mls/hr 06/21/20 10:32 06/21/20 10:50 Normal Saline - IV 150 mls/hr ASDIR JENELLE Administration Metronidazole 500 mg in 100 mls @ 100 mls/hr 06/21/20 10:45 06/22/20 01:22 Flagyl 500mg Premixed Ivpb - IVPB 100 mls/hr Q8H-IV JENELLE Administration Influenza Virus Vaccine 60 mcg 06/22/20 10:00 Flulaval Quad [id number] Syr IM 06/22/20 10:01 .ONCE ONE Home Medications Medication Instructions Recorded Lisinopril/Hydrochlorothiazide 1 each PO DAILY 06/21/20 [Lisinopril-Hctz 20-12.5 mg Tab] abd/pelv CT prelim showing L perinephric fat stranding in lower pole ASSESSMENT AND PLAN: This patient is a 60yof with PMHx of HTN presented to the ED c/o having 5 days of LLQ pelvic pain n and is admitted for acute pyelonephritis. #Acute Pyelonephritis on rocephin 2gm/flagyl iv 500mg q8, Id on the case dr Tinsley, continue daily cbc, ivf continue , ordered US f/u the result. continue to monitor , id on the case #Sepsis due to pylo r/o infection, will continue to monitor #Hx of HTN : continue home meds DVt px: lovenox sq
[2020-06-22 09:45] LABS: ERYTHROCYTE SEDIMENTATION RATE 76 mm/hr (0-30)
[2020-06-22] MEDS ORDERED: FLU VACCINE (FLULAVAL) PF 60 MCG/0.5 ML SYRINGE 2020-2021 IM ONE (10:00)
[2020-06-22] MEDS ORDERED: DEXTROSE 5%-WATER 100 ML IVPB ONE (11:22)
[2020-06-22] MEDS: CEFTRIAXONE 2 GM in DEXTROSE 5%-WATER 100 ML IVPB SCH (11:24)
[2020-06-22] MEDS: ENOXAPARIN NA (PORCINE) 40 MG/0.4 ML DISP.SYRIN SQ SCH (11:25)
--- NOTE | 2020-06-22 13:32 | PN ---
Physical Exam: SUBJECTIVE: Patient seen and examined. Pt was febrile overnight, Tmax 102.6. Pt stated she felt slightly better. Denied increased urinary frequency, urgency, pain on urination. OBJECTIVE: Vital Signs Period Temp Pulse Resp BP Sys/Grant Pulse Ox Last 24 Hr 98.8 F-102.6 F 68-93 18-20 97-119/54-65 97-98 GENERAL: Awake, alert. In mild distress. Tearful. HEENT: NCAT, EOMI. Moist mucus membranes. LUNGS: CTA b/l. No wheezes or accessory muscle use. HEART: Regular rate and rhythm, S1, S2 without murmur. ABDOMEN: Soft, nontender, nondistended, normoactive bowel sounds. No suprapubic tenderness. MSK: No CVAT. Left groin tender to palpation. EXTREMITIES:warm, well-perfused. No edema SKIN: Warm, dry Laboratory Last Values WBC 14.8 K/mm3 (4.0-10.0) H 06/22/20 06:00 RBC 3.02 M/mm3 (3.60-5.2) L 06/22/20 06:00 Hgb 9.6 GM/dL (10.7-15.3) L 06/22/20 06:00 Hct 28.3 % (32.4-45.2) L 06/22/20 06:00 MCV 93.8 fl (80-96) 06/22/20 06:00 MCH 31.8 pg (25.7-33.7) 06/22/20 06:00 MCHC 33.9 g/dl (32.0-36.0) 06/22/20 06:00 RDW 13.1 % (11.6-15.6) 06/22/20 06:00 Plt Count 207 K/MM3 (134-434) 06/22/20 06:00 MPV 8.1 fl (7.5-11.1) 06/22/20 06:00 Absolute Neuts (auto) 11.5 K/mm3 (1.5-8.0) H 06/22/20 06:00 Neutrophils % 77.7 % (42.8-82.8) 06/22/20 06:00 Lymphocytes % 10.9 % (8-40) D 06/22/20 06:00 Monocytes % 11.0 % (3.8-10.2) H 06/22/20 06:00 Eosinophils % 0.2 % (0-4.5) D 06/22/20 06:00 Basophils % 0.2 % (0-2.0) 06/22/20 06:00 Nucleated RBC % 0 % (0-0) 06/22/20 06:00 ESR 76 mm/hr (0-30) H 06/22/20 06:00 Sodium 142 mmol/L (136-145) 06/22/20 06:00 Potassium 3.4 mmol/L (3.5-5.1) L 06/22/20 06:00 Chloride 113 mmol/L (98-107) H 06/22/20 06:00 Carbon Dioxide 23 mmol/L (21-32) 06/22/20 06:00 Anion Gap 6 MMOL/L (8-16) L 06/22/20 06:00 BUN 11.6 mg/dL (7-18) 06/22/20 06:00 Creatinine 0.5 mg/dL (0.55-1.3) L 06/22/20 06:00 Est GFR (CKD-EPI)AfAm 123.65 06/22/20 06:00 Est GFR (CKD-EPI)NonAf 106.68 06/22/20 06:00 Random Glucose 96 mg/dL (74-106) 06/22/20 06:00 Lactic Acid 0.6 mmol/L (0.4-2.0) 06/22/20 06:00 Calcium 7.7 mg/dL (8.5-10.1) L 06/22/20 06:00 Phosphorus 2.0 mg/dL (2.5-4.9) L 06/21/20 07:14 Magnesium 2.1 mg/dL (1.8-2.4) 06/21/20 07:14 Ferritin 80.0 ng/ml (8-388) 06/22/20 06:00 Total Bilirubin 0.2 mg/dL (0.2-1) 06/22/20 06:00 AST 15 U/L (15-37) 06/22/20 06:00 ALT 13 U/L (13-61) 06/22/20 06:00 Alkaline Phosphatase 69 U/L (45-117) 06/22/20 06:00 LD Total 132 U/L (84-246) 06/22/20 06:00 C-Reactive Protein 15.3 MG/DL (0.00-0.3) H 06/22/20 06:00 Total Protein 5.6 g/dl (6.4-8.2) L 06/22/20 06:00 Albumin 2.3 g/dl (3.4-5.0) L 06/22/20 06:00 Lipase 103 U/L (73-393) 06/20/20 16:40 Urine Color Yellow 06/20/20 16:40 Urine Appearance Cloudy 06/20/20 16:40 Urine pH 5.5 (5.0-8.0) 06/20/20 16:40 Ur Specific [place] 1.019 (1.010-1.035) 06/20/20 16:40 Urine Protein Trace (NEGATIVE) 06/20/20 16:40 Urine Glucose (UA) Negative (NEGATIVE) 06/20/20 16:40 Urine Ketones Negative (NEGATIVE) 06/20/20 16:40 Urine Blood Negative (NEGATIVE) 06/20/20 16:40 Urine Nitrite Positive (NEGATIVE) H 06/20/20 16:40 Urine Bilirubin Negative (NEGATIVE) 06/20/20 16:40 Urine Urobilinogen 1.0 mg/dL (0.2-1.0) 06/20/20 16:40 Ur Leukocyte Esterase 2+ (NEGATIVE) H 06/20/20 16:40 Urine WBC (Auto) 190 /uL (0-25.8) 06/20/20 16:40 Urine RBC (Auto) 13 /uL (0-23.9) 06/20/20 16:40 Urine Casts (Auto) 7 /uL (0-3.1) 06/20/20 16:40 U Epithel Cells (Auto) 2 /uL (0-25.1) 06/20/20 16:40 Urine Bacteria (Auto) >9,000 /uL (0-1359) 06/20/20 16:40 Urine HCG, Qual Negative 06/20/20 16:40 COVID-19 (LIZETT) Not detected (Not Detected) 06/20/20 20:40 Active Medications Enoxaparin Sodium (Lovenox -) 40 mg SQ DAILY JENELLE Last Admin: 06/22/20 11:25 Dose: 40 mg Documented by: Ceftriaxone Sodium 2 gm/ (Dextrose) 100 mls @ 200 mls/hr IVPB DAILY JENELLE; Protocol Last Admin: 06/22/20 11:24 Dose: 200 mls/hr Documented by: Sodium Chloride (Normal Saline -) 1,000 mls @ 150 mls/hr IV ASDIR JENELLE Last Admin: 06/21/20 10:50 Dose: 150 mls/hr Documented by: Metronidazole (Flagyl 500mg Premixed Ivpb -) 500 mg in 100 mls @ 100 mls/hr IVPB Q8H-IV JENELLE Last Admin: 06/22/20 11:24 Dose: 100 mls/hr Documented by: CT A/P 06/20 No hydronephrosis is seen. Left perirenal and periureteral soft tissue stranding consistent with edema is noted suggestive of inflammation/infection such as acute pyelonephritis or pyelitis/ureteritis versus representing parenchymal changes due to a recently passed calculus. There is no definite CT evidence of current urolithiasis. A 2.4 x 2 cm nonspecific hypodense focus is noted within the inferomedial left renal cortex which could represent a nonspecific complex cyst, abscess and less likely a solid neoplastic lesion. Close imaging follow-up is suggested. Status post gastric surgery. Small to moderate hiatal hernia. Renal US 06/21 There is no evidence of hydronephrosis. A nonspecific 2.4 x 2 cm low-attenuation focus identified within the lower pole cortex of the left kidney medially on CT performed 06/20/2020 cannot be appreciated on sonography. Please refer to the CT report in this regard. In addition left perirenal soft tissue stranding identified on CT also cannot be appreciated on sonography. ASSESSMENT/PLAN: Pt is a 60 yo F with PMH of HTN who presented to the ED with 5 days of LLQ and pelvic pain with low grade fevers. Pt is admitted for pyelonephritis. Sepsis likely secondary to acute pyelonephritis -CT A/P as above. -Leukocytosis improving -Bcx negative thus far. Ucx growing lactose fermenting GNB -c/w ceftriaxone (started 06/20, skipped 06/21) day 2. Metronidazole 500,g q8H (started 06/21) day 2. -Pt febrile in last 24 hours, Tmax 102.6 -c/w IVF -c/w acetaminophen 650mg q6H PRN for fever -Renal US as above. -ID consulted. HTN, chronic -Currently normotensive -c/w home lisinopril/HCTZ 20-12.5mg qD FEN -NS 150cc/hr -Monitor electrolytes and replete as needed -Sodium controlled diet PPx DVT: Lovenox Dispo continue to monitor in med/surg Visit type - Emergency Visit Emergency Visit: Yes ED Registration Date: 06/20/20 Care time: The patient presented to the Emergency Department on the above date and was hospitalized for further evaluation of their emergent condition. - New Patient This patient is new to me today: No - Critical Care Critical Care patient: No ATTENDING PHYSICIAN STATEMENT I saw and evaluated the patient. I reviewed the resident's note and discussed the case with the resident. I agree with the resident's findings and plan as documented. SUBJECTIVE: OBJECTIVE: ASSESSMENT AND PLAN:
[2020-06-22] MEDS: SODIUM CHLORIDE 1,000 ML IV SCH (15:00)
[2020-06-22] MEDS ORDERED: ACETAMINOPHEN 325 MG TABLET (FP) PO PRN (15:58)
--- NOTE | 2020-06-22 22:25 | PN ---
Progress Note, Physician Chief Complaint: C/O L FLANK, LLQ PAIN NO DYSURIA NO FEVER/ CHILLS REMAINS FEBRILE WBC IMPROVED BC (-) URINE C/S GNR - Current Medication List Current Medications: Active Medications Acetaminophen (Tylenol -) 650 mg PO Q6H PRN PRN Reason: FEVER Last Admin: 06/22/20 17:46 Dose: 650 mg Documented by: Enoxaparin Sodium (Lovenox -) 40 mg SQ DAILY JENELLE Last Admin: 06/22/20 11:25 Dose: 40 mg Documented by: Ceftriaxone Sodium 2 gm/ (Dextrose) 100 mls @ 200 mls/hr IVPB DAILY JENELLE; Protocol Last Admin: 06/22/20 11:24 Dose: 200 mls/hr Documented by: Sodium Chloride (Normal Saline -) 1,000 mls @ 150 mls/hr IV ASDIR JENELLE Last Admin: 06/22/20 15:00 Dose: 150 mls/hr Documented by: Metronidazole (Flagyl 500mg Premixed Ivpb -) 500 mg in 100 mls @ 100 mls/hr IVPB Q8H-IV JENELLE Last Admin: 06/22/20 17:48 Dose: 100 mls/hr Documented by: - Objective Vital Signs: Vital Signs Temperature 99.3 F 06/22/20 18:00 Pulse Rate 78 06/22/20 18:00 Respiratory Rate 18 06/22/20 18:00 Blood Pressure 140/81 06/22/20 18:00 O2 Sat by Pulse Oximetry (%) 97 06/22/20 18:00 Constitutional: Yes: No Distress Eyes: Yes: Conjunctiva Clear Cardiovascular: Yes: Regular Rate and Rhythm, S1, S2 Respiratory: Yes: CTA Bilaterally Gastrointestinal: Yes: Normal Bowel Sounds, Other (LLQ, L FLANK TENDERNESS) Labs: CBC, BMP 06/22/20 06:00 06/22/20 06:00 Assessment/Plan UTI L PYELONEPHRITIS AWAIT C/S CONTINUE CEFTRIAXONE
[2020-06-23] MEDS ORDERED: MELATONIN 5 MG TABLETS PO ONE (01:57)
[2020-06-23] MEDS: SODIUM CHLORIDE 1,000 ML IV SCH ×2 (07:44→10:36)
[2020-06-23 08:55] LABS: BASO % 0.2 % (0-2.0); EOS % 1.4 % (0-4.5); HEMATOCRIT 28.4 % (32.4-45.2); HEMOGLOBIN 9.9 GM/dL (10.7-15.3); LYMPH % 12.1 % (8-40); MCH 32.6 pg (25.7-33.7); MCHC 34.7 g/dl (32.0-36.0); MEAN CELL VOLUME 93.9 fl (80-96); MEAN PLT VOLUME 8.3 fl (7.5-11.1); MONO % 9.9 % (3.8-10.2); NEUT % 76.4 % (42.8-82.8); PLATELET COUNT 233 K/MM3 (134-434); RBC 3.02 M/mm3 (3.60-5.2); RDW 12.8 % (11.6-15.6); WHITE BLOOD COUNT 10.7 K/mm3 (4.0-10.0)
[2020-06-23 09:17] LABS: BLOOD UREA NITROGEN 6.8 mg/dL (7-18); CREATININE 0.4 mg/dL (0.55-1.3); POTASSIUM 3.4 mmol/L (3.5-5.1)
[2020-06-23] MEDS ORDERED: PT OWN MED DRAWER 7, Y5N ONE (09:31)
[2020-06-23] MEDS ORDERED: DEXTROSE 5%-WATER 100 ML IVPB ONE (09:32)
[2020-06-23] MEDS: ENOXAPARIN NA (PORCINE) 40 MG/0.4 ML DISP.SYRIN SQ SCH (09:36)
[2020-06-23] MEDS ORDERED: LISINOPRIL 20 MG TABLET PO SCH (10:00)
[2020-06-23] MEDS ORDERED: HYDROCHLOROTHIAZIDE 12.5 MG CAPSULE (FP) PO SCH (10:00)
[2020-06-23] MEDS: CEFTRIAXONE 2 GM in DEXTROSE 5%-WATER 100 ML IVPB SCH (10:36)
--- NOTE | 2020-06-23 15:06 | PN ---
Teaching Attending Note Name of Resident: Lolis Argueta ATTENDING PHYSICIAN STATEMENT I saw and evaluated the patient. I reviewed the resident's note and discussed the case with the resident. I agree with the resident's findings and plan as documented. SUBJECTIVE: Patient no longer with pain states she has not slept well while in the hospital OBJECTIVE: Vital Signs Period Temp Pulse Resp BP Sys/Grant Pulse Ox Last 24 Hr 99.3 F-99.6 F 59-78 18-20 132-141/69-81 94-97 GENERAL: Awake, alert, in no acute distress. HEAD: Normal with no signs of trauma. EYES: Pupils equal, round and reactive to light, extraocular movements intact, sclera anicteric, conjunctiva clear. EARS, NOSE, THROAT: Ears normal, nares patent, Moist mucous membranes. NECK: Normal range of motion, No JVD, LUNGS: Breath sounds equal, clear to auscultation bilaterally. No wheezes, and no crackles. No accessory muscle use. HEART: Regular rate and rhythm, normal S1 and S2 without murmur, rub or gallop. ABDOMEN: Soft, nontender, not distended, normoactive bowel sounds, no guarding, no rebound, MUSCULOSKELETAL: Normal range of motion at all joints. No bony deformities or tenderness. No CVA tenderness. EXTREMITIES: 2+ pulses, warm, well-perfused. No calf tenderness. No peripheral edema. NEUROLOGICAL: Cranial nerves II-XII intact. Normal speech. PSYCHIATRIC: Cooperative. Good eye contact. Appropriate mood and affect. SKIN: Warm, dry, normal turgor, no rashes or lesions noted. ASSESSMENT AND PLAN: 60 y/o F with Hx of HTN who presents with pelvic pain, found to have pyelonephritis Will transition to PO antibiotics at this time. patient tolerating PO intake Plan to discharge home with outpatient follow up Continue home medication Please see discharge summary for additional information
--- NOTE | 2020-06-23 15:07 | DS ---
Physical Exam: SUBJECTIVE: Patient seen and examined. Pt reported feeling better today and was without pain. OBJECTIVE: Vital Signs Period Temp Pulse Resp BP Sys/Grant Pulse Ox Last 24 Hr 99.3 F-99.6 F 59-78 18-20 132-141/69-81 94-97 PHYSICAL EXAM GENERAL: Somnolent but arousable. Not in acute distress. HEENT: NCAT, EOMI. Moist mucus membranes. LUNGS: CTA b/l. No wheezes or accessory muscle use. HEART: Regular rate and rhythm, S1, S2 without murmur. ABDOMEN: Soft, nontender, nondistended, normoactive bowel sounds. No suprapubic tenderness. EXTREMITIES:warm, well-perfused. No edema SKIN: Warm, dry LABS Laboratory Last Values WBC 10.7 K/mm3 (4.0-10.0) H 06/23/20 08:00 RBC 3.02 M/mm3 (3.60-5.2) L 06/23/20 08:00 Hgb 9.9 GM/dL (10.7-15.3) L 06/23/20 08:00 Hct 28.4 % (32.4-45.2) L 06/23/20 08:00 MCV 93.9 fl (80-96) 06/23/20 08:00 MCH 32.6 pg (25.7-33.7) 06/23/20 08:00 MCHC 34.7 g/dl (32.0-36.0) 06/23/20 08:00 RDW 12.8 % (11.6-15.6) 06/23/20 08:00 Plt Count 233 K/MM3 (134-434) 06/23/20 08:00 MPV 8.3 fl (7.5-11.1) 06/23/20 08:00 Absolute Neuts (auto) 8.2 K/mm3 (1.5-8.0) H 06/23/20 08:00 Neutrophils % 76.4 % (42.8-82.8) 06/23/20 08:00 Lymphocytes % 12.1 % (8-40) 06/23/20 08:00 Monocytes % 9.9 % (3.8-10.2) 06/23/20 08:00 Eosinophils % 1.4 % (0-4.5) D 06/23/20 08:00 Basophils % 0.2 % (0-2.0) 06/23/20 08:00 Nucleated RBC % 0 % (0-0) 06/23/20 08:00 ESR 76 mm/hr (0-30) H 06/22/20 06:00 Sodium 140 mmol/L (136-145) 06/23/20 08:00 Potassium 3.4 mmol/L (3.5-5.1) L 06/23/20 08:00 Chloride 110 mmol/L (98-107) H 06/23/20 08:00 Carbon Dioxide 24 mmol/L (21-32) 06/23/20 08:00 Anion Gap 6 MMOL/L (8-16) L 06/23/20 08:00 BUN 6.8 mg/dL (7-18) L 06/23/20 08:00 Creatinine 0.4 mg/dL (0.55-1.3) L 06/23/20 08:00 Est GFR (CKD-EPI)AfAm 133.07 06/23/20 08:00 Est GFR (CKD-EPI)NonAf 114.81 06/23/20 08:00 Random Glucose 83 mg/dL (74-106) 06/23/20 08:00 Lactic Acid 0.6 mmol/L (0.4-2.0) 06/22/20 06:00 Calcium 8.0 mg/dL (8.5-10.1) L 06/23/20 08:00 Phosphorus 2.0 mg/dL (2.5-4.9) L 06/21/20 07:14 Magnesium 2.1 mg/dL (1.8-2.4) 06/21/20 07:14 Ferritin 80.0 ng/ml (8-388) 06/22/20 06:00 Total Bilirubin 0.2 mg/dL (0.2-1) 06/22/20 06:00 AST 15 U/L (15-37) 06/22/20 06:00 ALT 13 U/L (13-61) 06/22/20 06:00 Alkaline Phosphatase 69 U/L (45-117) 06/22/20 06:00 LD Total 132 U/L (84-246) 06/22/20 06:00 C-Reactive Protein 15.3 MG/DL (0.00-0.3) H 06/22/20 06:00 Total Protein 5.6 g/dl (6.4-8.2) L 06/22/20 06:00 Albumin 2.3 g/dl (3.4-5.0) L 06/22/20 06:00 Lipase 103 U/L (73-393) 06/20/20 16:40 Urine Color Yellow 06/20/20 16:40 Urine Appearance Cloudy 06/20/20 16:40 Urine pH 5.5 (5.0-8.0) 06/20/20 16:40 Ur Specific [place] 1.019 (1.010-1.035) 06/20/20 16:40 Urine Protein Trace (NEGATIVE) 06/20/20 16:40 Urine Glucose (UA) Negative (NEGATIVE) 06/20/20 16:40 Urine Ketones Negative (NEGATIVE) 06/20/20 16:40 Urine Blood Negative (NEGATIVE) 06/20/20 16:40 Urine Nitrite Positive (NEGATIVE) H 06/20/20 16:40 Urine Bilirubin Negative (NEGATIVE) 06/20/20 16:40 Urine Urobilinogen 1.0 mg/dL (0.2-1.0) 06/20/20 16:40 Ur Leukocyte Esterase 2+ (NEGATIVE) H 06/20/20 16:40 Urine WBC (Auto) 190 /uL (0-25.8) 06/20/20 16:40 Urine RBC (Auto) 13 /uL (0-23.9) 06/20/20 16:40 Urine Casts (Auto) 7 /uL (0-3.1) 06/20/20 16:40 U Epithel Cells (Auto) 2 /uL (0-25.1) 06/20/20 16:40 Urine Bacteria (Auto) >9,000 /uL (0-1359) 06/20/20 16:40 Urine HCG, Qual Negative 06/20/20 16:40 COVID-19 (LIZETT) Not detected (Not Detected) 06/20/20 20:40 HOSPITAL COURSE: Pt is a 60 yo F with PMH of HTN who presented to the ED with 5 days of LLQ and pelvic pain with low grade fevers. CT A/P showed evidence of inflammatory/infectious process of the L kidney. Pt is admitted for sepsis likely secondary to acute pyelonephritis. Pt was treated with ceftriaxone and metronidazole. Leukocytosis improved. Repeat renal US did not show hydrone phrosis. Pt was afebrile for >24hours. Decision made to transition to PO antibiotics. Pt is hemodynamically stable and medically optimized for discharge home. Date of Admission:06/20/20 Date of Discharge: 06/23/20 Minutes to complete discharge: 36 Discharge Summary Problems reviewed: Yes Reason For Visit: LT LEG PAIN (THIGH) Current Active Problems Hypertension (Chronic) Condition: Improved - Instructions Diet, Activity, Other Instructions: Your visit: You were admitted to the hospital for pelvic pain and fevers. You had imaging of your abdomen and pelvis. You were found to have inflammation and infection of your kidney. There was no evidence of a stone. You were treated with IV antibiotics with improvement of your symptoms. You are now stable and may return home. Additional Image findings: During imaging of your abdomen and pelvis, you were found to have some incidental findings. You have a 2.4 x 2cm complex cyst located on your left kidney and a hiatal hernia. You will have to follow up with your primary care physician to monitor these findings. Medications changes: You have a NEW medication -Please continue to take Cephalexin 500mg by mouth every 12 hours for 4 days. Your next dose is tomorrow. -Continue to take all other home medications as prescribed: -Lisinopril/hydrochlorothiazide 20-12.5mg, 1 pill by mouth daily for your blood pressure. -Diclofenac gel 1% apply to affected area daily as needed. -Cyclobenzaprine 10mg by mouth every night for muscle spasms. Follow up: - Visit with your Primary Care Provider, Dr. Crowley, in 2 weeks. You may discuss your hospitalization during this visit. You will also have to do follow-up imaging of the cyst found in your kidney. If you do not have a primary care provider you may make an appointment with Dr. Lolis Argueta at the [facility] clinic located at [facility] ([phone]). Additional Instructions: -You are being discharged to your home. -Please return to the Emergency Department if you experience worsening pain, fevers, chills, shortness of breath, or chest pain, or if you experience any worsening, new or concerning symptoms. Referrals: ON STAFF,NOT [Non Staff, Medical] - 2 Weeks (Follow up with Dr. Crowley, your primary care doctor) Disposition: HOME - Home Medications Comprehensive Discharge Medication List: Ambulatory Orders Lisinopril/Hydrochlorothiazide [Lisinopril-Hctz 20-12.5 mg Tab] 1 each PO DAILY 06/21/20 Cyclobenzaprine HCl [Flexeril 10 mg] 10 mg PO HS 06/22/20 Diclofen Sod/Kinesiology Tape [Diclo Gel 1%-Xrylix Sheet Kit] 1 applic TP DAILY PRN 06/22/20 Cephalexin [Keflex] 500 mg PO Q12H 4 Days #8 capsule 06/23/20 This patient is new to me today: No Emergency Visit: Yes ED Registration Date: 06/20/20 Care time: The patient presented to the Emergency Department on the above date and was hospitalized for further evaluation of their emergent condition. Critical Care patient: No - Discharge Referral [facility]erred to [facility] Med P.C.: No ATTENDING PHYSICIAN STATEMENT I saw and evaluated the patient. I reviewed the resident's note and discussed the case with the resident. I agree with the resident's findings and plan as documented. SUBJECTIVE: OBJECTIVE: ASSESSMENT AND PLAN:
[2020-06-23 15:55] VITALS: BP 129/70; PULSE 60; TEMP 97.7
== END 2020-06-23 16:57 | disposition home or self-care (01) | DRG 720 ==
LOC: JER 15:19 → JERBED 19:49 → J8W 23:08
PROVIDERS: ADMIT Internal Medicine; ATTEND Internal Medicine
DX: A41.89 Other specified sepsis (principal); N10 Acute pyelonephritis; E87.2 Acidosis; I10 Essential (primary) hypertension; N28.1 Cyst of kidney, acquired; B96.29 Other Escherichia coli [E. coli] as the cause of diseases classified elsewhere; D72.829 Elevated white blood cell count, unspecified; K44.9 Diaphragmatic hernia without obstruction or gangrene; R10.2 Pelvic and perineal pain
CPT/HCPCS: 36415; 74177-TC; 76775-TC; 80048; 80053; 81003; 82728; 83605; 83615; 83690; 83735; 84100; 84703; 85025; 85651; 86140; 87040; 87086; 87186; 93005; 93010; 99285-25; C9803; J0131; Q9967; U0003

== ENCOUNTER 2022-12-30 10:26 | Inpatient (IN) | payer OTHER ==
[2022-12-30] MEDS ORDERED: IBUPROFEN 600 MG TABLET (FP) PO ONE ×2 (10:44→11:08)
[2022-12-30 11:26] LABS: EPI CELLS >36 /uL (0-25.1); HYALINE CASTS 19 /uL (0-3.1); PH,URINE 6.5 (5.0-8.0); URINE APPEARANCE CLOUDY; URINE BACTERIA 1301 /uL (0-1359); URINE BILIRUBIN NEGATIVE (NEGATIVE); URINE COLOR DK YELLOW; URINE GLUCOSE (UA) NEGATIVE (NEGATIVE); URINE KETONE 2+ (NEGATIVE); URINE LEUK ESTERASE 2+ (NEGATIVE); URINE NITRITE NEGATIVE (NEGATIVE); URINE PROTEIN 1+ (NEGATIVE); URINE RBC 118 /uL (0-23.9); URINE WBC 342 /uL (0-25.8)
[2022-12-30] MEDS ORDERED: SODIUM CHLORIDE 0.9% 500 ML INFUS.BAG IV ONE ×2 (11:37→12:31)
[2022-12-30] MEDS ORDERED: CEFTRIAXONE 1,000 MG in DEXTROSE 5%-WATER - 50 ML IVPB ONE (11:37)
[2022-12-30] MEDS ORDERED: ACETAMINOPHEN 1000 MG/100 ML BAG IVPB ONE (11:38)
[2022-12-30] MEDS ORDERED: ACETAMINOPHEN INJECTION 100 ML IVPB ONE (12:09)
[2022-12-30] MEDS ORDERED: CEFTRIAXONE 1 GM/50 ML BAG ONE (12:09)
[2022-12-30 12:11] LABS: HEMATOCRIT 34.2 % (32.4-45.2); HEMOGLOBIN 11.8 GM/dL (10.7-15.3); MCH 31.1 pg (25.7-33.7); MCHC 34.5 g/dl (32.0-36.0); MEAN CELL VOLUME 90.2 fl (80-96); MEAN PLT VOLUME 7.6 fl (7.5-11.1); PLATELET COUNT 266 10^3/uL (134-434); RBC 3.79 M/mm3 (3.60-5.2); RDW 13.7 % (11.6-15.6); WHITE BLOOD COUNT 17.7 K/mm3 (4.0-10.0)
[2022-12-30 12:22] LABS: INR 1.39 (0.83-1.09); PROTHROMBIN TIME (PATIENT) 16.1 SEC (9.7-13.0)
[2022-12-30 12:25] LABS: ACTIVATED PTT 32.5 SECONDS (25.2-36.5)
[2022-12-30 12:40] LABS: CALCIUM 9.3 mg/dL (8.5-10.1)
[2022-12-30 12:41] LABS: ALBUMIN 3.6 g/dl (3.4-5.0); BLOOD UREA NITROGEN 17.7 mg/dL (7-18)
[2022-12-30] MEDS ORDERED: ONDANSETRON 4 MG/2 ML VIAL IVPUSH ONE (12:42)
[2022-12-30] MEDS ORDERED: ONDANSETRON 4 MG/2 ML VIAL ONE (12:42)
[2022-12-30 12:44] LABS: CREATININE 0.8 mg/dL (0.55-1.3)
[2022-12-30 12:46] LABS: BILIRUBIN,TOTAL 0.6 mg/dL (0.2-1); TOT PROT 7.3 g/dl (6.4-8.2)
[2022-12-30 13:08] LABS: ANISOCYTOSIS 0; MACROCYTOSIS 0
[2022-12-30] MEDS ORDERED: ACETAMINOPHEN 325 MG TABLET (FP) PO PRN (13:35)
[2022-12-30] MEDS: SODIUM CHLORIDE 1,000 ML IV SCH (16:27)
[2022-12-30 16:52] VITALS: BMI 26.9
[2022-12-30] MEDS: ACETAMINOPHEN 325 MG TABLET (FP) PO PRN (19:19)
[2022-12-31] MEDS: ACETAMINOPHEN 325 MG TABLET (FP) PO PRN ×4 (02:08→22:10)
[2022-12-31] MEDS: SODIUM CHLORIDE 1,000 ML IV SCH ×2 (05:40→23:14)
[2022-12-31 08:39] LABS: BASO % 0.2 % (0-2.0); EOS % 0.1 % (0-4.5); HEMATOCRIT 31.5 % (32.4-45.2); HEMOGLOBIN 10.6 GM/dL (10.7-15.3); LYMPH % 6.5 % (8-40); MCH 30.8 pg (25.7-33.7); MCHC 33.7 g/dl (32.0-36.0); MEAN CELL VOLUME 91.5 fl (80-96); MEAN PLT VOLUME 8.3 fl (7.5-11.1); MONO % 12.3 % (3.8-10.2); NEUT % 80.9 % (42.8-82.8); PLATELET COUNT 242 10^3/uL (134-434); RBC 3.44 M/mm3 (3.60-5.2); RDW 13.6 % (11.6-15.6); WHITE BLOOD COUNT 18.1 K/mm3 (4.0-10.0)
[2022-12-31 08:50] LABS: CALCIUM 8.4 mg/dL (8.5-10.1)
[2022-12-31 08:51] LABS: BLOOD UREA NITROGEN 9.9 mg/dL (7-18)
[2022-12-31 08:53] LABS: PHOSPHOROUS 2.3 mg/dL (2.5-4.9)
[2022-12-31 08:54] LABS: CREATININE 0.6 mg/dL (0.55-1.3)
[2022-12-31 08:55] LABS: BILIRUBIN,TOTAL 0.4 mg/dL (0.2-1); TOT PROT 5.8 g/dl (6.4-8.2)
[2022-12-31 09:09] LABS: ALBUMIN 2.7 g/dl (3.4-5.0)
[2022-12-31] MEDS: ENOXAPARIN NA (PORCINE) 40 MG/0.4 ML DISP.SYRIN SQ SCH (09:55)
[2022-12-31] MEDS ORDERED: CEFTRIAXONE 1 GM in DEXTROSE 5%-WATER - 50 ML IVPB SCH (10:00)
[2022-12-31] MEDS ORDERED: IBUPROFEN 600 MG TABLET (FP) PO PRN (12:31)
[2022-12-31] MEDS ORDERED: PANTOPRAZOLE 40 MG TABLET PO ONE (14:39)
[2022-12-31] MEDS: PIPERACILLIN/TAZOB 3.375 GM 3.375 GM in DEXTROSE 5%-WATER - 50 ML IVPB SCH (21:43)
[2023-01-01] MEDS: PIPERACILLIN/TAZOB 3.375 GM 3.375 GM in DEXTROSE 5%-WATER - 50 ML IVPB SCH ×2 (03:12→10:01)
[2023-01-01] MEDS: PANTOPRAZOLE 40 MG TABLET PO SCH (10:00)
[2023-01-01] MEDS: ENOXAPARIN NA (PORCINE) 40 MG/0.4 ML DISP.SYRIN SQ SCH (10:01)
[2023-01-01 10:18] LABS: BASO % 0.1 % (0-2.0); EOS % 0.2 % (0-4.5); HEMATOCRIT 29.1 % (32.4-45.2); HEMOGLOBIN 10.1 GM/dL (10.7-15.3); MCH 31.5 pg (25.7-33.7); MCHC 34.7 g/dl (32.0-36.0); MEAN CELL VOLUME 90.8 fl (80-96); MEAN PLT VOLUME 8.3 fl (7.5-11.1); MONO % 9.9 % (3.8-10.2); NEUT % 81.8 % (42.8-82.8); PLATELET COUNT 250 10^3/uL (134-434); RDW 13.5 % (11.6-15.6); WHITE BLOOD COUNT 15.3 K/mm3 (4.0-10.0)
[2023-01-01 10:45] LABS: ALBUMIN 2.5 g/dl (3.4-5.0); BLOOD UREA NITROGEN 8.8 mg/dL (7-18); CALCIUM 8.2 mg/dL (8.5-10.1)
[2023-01-01 10:49] LABS: CREATININE 0.6 mg/dL (0.55-1.3)
[2023-01-01 10:50] LABS: BILIRUBIN,TOTAL 0.5 mg/dL (0.2-1); TOT PROT 5.9 g/dl (6.4-8.2)
[2023-01-01] MEDS: MEROPENEM 1 GM in DEXTROSE 5%-WATER 100 ML IVPB SCH ×2 (13:10→17:21)
[2023-01-01] MEDS: SODIUM CHLORIDE 1,000 ML IV SCH (17:21)
[2023-01-01] MEDS: ACETAMINOPHEN 325 MG TABLET (FP) PO PRN (17:29)
[2023-01-02] MEDS: MEROPENEM 1 GM in DEXTROSE 5%-WATER 100 ML IVPB SCH ×2 (02:54→09:19)
[2023-01-02] MEDS: ENOXAPARIN NA (PORCINE) 40 MG/0.4 ML DISP.SYRIN SQ SCH (09:19)
[2023-01-02] MEDS: PANTOPRAZOLE 40 MG TABLET PO SCH (09:19)
[2023-01-02 09:49] LABS: BASO % 0.5 % (0-2.0); EOS % 0.6 % (0-4.5); HEMATOCRIT 32.9 % (32.4-45.2); HEMOGLOBIN 11.4 GM/dL (10.7-15.3); MCH 31.2 pg (25.7-33.7); MCHC 34.7 g/dl (32.0-36.0); MEAN CELL VOLUME 89.8 fl (80-96); MEAN PLT VOLUME 8.8 fl (7.5-11.1); NEUT % 77.9 % (42.8-82.8); PLATELET COUNT 295 10^3/uL (134-434); RBC 3.67 M/mm3 (3.60-5.2); RDW 13.4 % (11.6-15.6); WHITE BLOOD COUNT 10.7 K/mm3 (4.0-10.0)
[2023-01-02] MEDS ORDERED: BISACODYL 5 MG TABLET.DR (FP) PO ONE (09:51)
[2023-01-02 10:09] LABS: CALCIUM 8.9 mg/dL (8.5-10.1)
[2023-01-02 10:10] LABS: ALBUMIN 2.8 g/dl (3.4-5.0); BLOOD UREA NITROGEN 7.5 mg/dL (7-18)
[2023-01-02 10:13] LABS: CREATININE 0.5 mg/dL (0.55-1.3)
[2023-01-02 10:15] LABS: BILIRUBIN,TOTAL 0.3 mg/dL (0.2-1); TOT PROT 6.7 g/dl (6.4-8.2)
[2023-01-02] MEDS: DOCUSATE SODIUM 100 MG CAPSULE (FP) PO SCH ×2 (10:29→21:28)
[2023-01-02] MEDS: ERTAPENEM SODIUM 1 GM in SODIUM CHLORIDE 50 ML IVPB SCH (15:26)
[2023-01-03] MEDS: PANTOPRAZOLE 40 MG TABLET PO SCH (09:00)
[2023-01-03] MEDS: ERTAPENEM SODIUM 1 GM in SODIUM CHLORIDE 50 ML IVPB SCH (09:00)
[2023-01-03] MEDS: ENOXAPARIN NA (PORCINE) 40 MG/0.4 ML DISP.SYRIN SQ SCH (09:00)
[2023-01-03 09:15] LABS: BASO % 0.5 % (0-2.0); EOS % 1.3 % (0-4.5); HEMATOCRIT 32.2 % (32.4-45.2); HEMOGLOBIN 11.7 GM/dL (10.7-15.3); LYMPH % 28.5 % (8-40); MCH 32.5 pg (25.7-33.7); MCHC 36.3 g/dl (32.0-36.0); MEAN CELL VOLUME 89.4 fl (80-96); MEAN PLT VOLUME 7.6 fl (7.5-11.1); MONO % 13.4 % (3.8-10.2); NEUT % 56.3 % (42.8-82.8); PLATELET COUNT 368 10^3/uL (134-434); RDW 13.4 % (11.6-15.6)
[2023-01-03 09:53] LABS: ALBUMIN 2.8 g/dl (3.4-5.0)
[2023-01-03 09:54] LABS: BLOOD UREA NITROGEN 7.9 mg/dL (7-18); CALCIUM 9.3 mg/dL (8.5-10.1); MAGNESIUM 1.9 mg/dL (1.8-2.4)
[2023-01-03 09:55] LABS: CREATININE 0.5 mg/dL (0.55-1.3)
[2023-01-03 09:56] LABS: BILIRUBIN,TOTAL 0.3 mg/dL (0.2-1); TOT PROT 6.9 g/dl (6.4-8.2)
[2023-01-03 10:46] VITALS: BP 140/79; PULSE 73; RESP 20; TEMP 978
== END 2023-01-03 13:13 | disposition home or self-care (01) | DRG 463 ==
LOC: JER 10:26 → JERFT 10:26 → JERBED 12:30 → OBSVTOIN 13:32 → J8W 15:56
PROVIDERS: ADMIT Internal Medicine; ATTEND Internal Medicine
DX: N10 Acute pyelonephritis (principal); I10 Essential (primary) hypertension; Z16.12 Extended spectrum beta lactamase (ESBL) resistance; N39.0 Urinary tract infection, site not specified; D72.829 Elevated white blood cell count, unspecified; A49.9 Bacterial infection, unspecified
CPT/HCPCS: 0241U-QW; 36415; 74176-TC; 80053; 81003; 83036; 83605; 83735; 84100; 84443; 85025; 85610; 85730; 87040; 87086; 87186; 93005; 93010; 99285-25; G0378

== ENCOUNTER 2023-01-04 12:35 | Day surgery (SDC) | payer OTHER ==
[2023-01-04] MEDS ORDERED: ERTAPENEM SODIUM 1 GM in SODIUM CHLORIDE 50 ML IVPB ONE (13:15)
[2023-01-04 13:50] VITALS: BP 122/65; PULSE 87; RESP 18; TEMP 98.7
== END 2023-01-04 14:15 | disposition home or self-care (01) ==
LOC: FINFUSION 12:35 → FM/S 12:37 → FINFUSION 14:15
PROVIDERS: ATTEND Internal Medicine
DX: N39.0 Urinary tract infection, site not specified (principal)
CPT/HCPCS: 96365

== ENCOUNTER 2023-01-05 11:52 | Day surgery (SDC) | payer OTHER ==
[2023-01-05] MEDS ORDERED: ERTAPENEM SODIUM 1 GM in SODIUM CHLORIDE 50 ML IVPB ONE (12:30)
[2023-01-05 14:13] VITALS: BP 142/79; PULSE 82; RESP 18; TEMP 98.2
== END 2023-01-05 14:13 | disposition home or self-care (01) ==
LOC: FINFUSION 11:52 → FM/S 11:53 → FINFUSION 14:13
PROVIDERS: ATTEND Internal Medicine
DX: N39.0 Urinary tract infection, site not specified (principal)
CPT/HCPCS: 96365

== ENCOUNTER 2023-01-06 12:21 | Day surgery (SDC) | payer OTHER ==
[2023-01-06] MEDS ORDERED: ERTAPENEM SODIUM 1 GM in SODIUM CHLORIDE 50 ML IVPB ONE (13:30)
[2023-01-06 13:44] VITALS: BP 102/62; PULSE 70; RESP 18; TEMP 98.8
== END 2023-01-06 13:45 | disposition home or self-care (01) ==
LOC: FINFUSION 12:21 → FM/S 12:22 → FINFUSION 13:45
PROVIDERS: ATTEND Internal Medicine
DX: N39.0 Urinary tract infection, site not specified (principal)
CPT/HCPCS: 96365

== ENCOUNTER 2023-01-07 13:19 | Day surgery (SDC) | payer OTHER ==
[2023-01-07] MEDS ORDERED: ERTAPENEM SODIUM 1 GM/50 ML PRE-DOCKED IVPB SCH (13:45)
[2023-01-07 14:21] VITALS: BP 110/66; PULSE 68; RESP 14; TEMP 98.4
== END 2023-01-07 14:25 | disposition home or self-care (01) ==
LOC: FINFUSION 13:19 → FM/S 13:22 → FINFUSION 14:25
PROVIDERS: ATTEND Internal Medicine
DX: N39.0 Urinary tract infection, site not specified (principal)
CPT/HCPCS: 96365

== ENCOUNTER 2023-01-08 13:42 | Day surgery (SDC) | payer OTHER ==
[2023-01-08] MEDS ORDERED: ERTAPENEM SODIUM 1 GM in SODIUM CHLORIDE 50 ML IVPB ONE (14:15)
[2023-01-08 14:34] VITALS: RESP 18; TEMP 98.6
[2023-01-08 14:43] VITALS: BP 108/62; PULSE 70
== END 2023-01-08 14:50 | disposition home or self-care (01) ==
LOC: FINFUSION 13:42 → FM/S 13:54 → FINFUSION 14:50
PROVIDERS: ATTEND Internal Medicine
DX: N39.0 Urinary tract infection, site not specified (principal)
CPT/HCPCS: 96365

== ENCOUNTER 2023-01-09 11:07 | Day surgery (SDC) | payer OTHER ==
[2023-01-09] MEDS ORDERED: ERTAPENEM SODIUM 1 GM in SODIUM CHLORIDE 50 ML IVPB ONE (11:15)
[2023-01-09 11:34] VITALS: RESP 18; TEMP 98.7
[2023-01-09 12:18] VITALS: BP 101/68; PULSE 66
== END 2023-01-09 12:21 | disposition home or self-care (01) ==
LOC: FINFUSION 11:07 → FM/S 11:09 → FINFUSION 12:21
PROVIDERS: ATTEND Internal Medicine
DX: N39.0 Urinary tract infection, site not specified (principal)
CPT/HCPCS: 96365

== ENCOUNTER 2023-01-10 11:17 | Day surgery (SDC) | payer OTHER ==
[2023-01-10] MEDS ORDERED: ERTAPENEM SODIUM 1 GM in SODIUM CHLORIDE 50 ML IVPB ONE (11:30)
[2023-01-10 11:56] VITALS: RESP 18; TEMP 98.7
[2023-01-10 16:09] VITALS: BP 125/65; PULSE 84
== END 2023-01-10 14:00 | disposition home or self-care (01) ==
LOC: FINFUSION 11:17 → FM/S 11:19 → FINFUSION 14:00
PROVIDERS: ATTEND Internal Medicine
DX: N39.0 Urinary tract infection, site not specified (principal)
CPT/HCPCS: 96365